=== PATIENT | male | born 1990 | race African-American/Black ===

== ENCOUNTER 2020-03-20 10:05 | Inpatient (IN) | payer SELFPAY ==
[~2020-03-20] VITALS: Ht 175.3 cm; Wt 68.8 kg
--- NOTE | 2020-03-20 10:38 | PHYS DOC ---
Past Medical History Past Medical History: Other Additional Past Medical Histor: 2 SEIZURES IN DECEMBER 2019 Past Surgical History: No Surgical History Smoking Status: Former Smoker Alcohol Use: Occasionally General Adult EDM: Chief Complaint: SEIZURE HPI: HPI: Patient is a 29 year old male who was brought here by his mom for evaluation of seizure activity. Patient says she was in his bed this morning and he was started having a seizure, convulsion, was confused after he woke up. His mom observed holding. Patient bit his tongue on the right side. Patient complained of headache at this time. Patient denies taking any medication at this time. Patient said he had 2 episodes seizure in December of this year. Patient went to ER at [facility], was evaluated there, recommend to be admitted for further evaluation however patient did not want to stay. Patient did not see a neurologist yet. Review of Systems: Review of Systems: Constitutional: Denies fever or chills. [] Eyes: Denies change in visual acuity. [] HENT: Denies nasal congestion or sore throat. [] Respiratory: Denies cough or shortness of breath. [] Cardiovascular: Denies chest pain or edema. [] GI: Denies abdominal pain, nausea, vomiting, bloody stools or diarrhea. [] : Denies dysuria. [] Musculoskeletal: Denies back pain or joint pain. [] Integument: Denies rash. [] Neurologic: Positive headache, positive for seizure activity. Endocrine: Denies polyuria or polydipsia. [] Lymphatic: Denies swollen glands. [] Psychiatric: Denies depression or anxiety. [] Heart Score: Risk Factors: Risk Factors: DM, Current or recent (<one month) smoker, HTN, HLP, family history of CAD, obesity. Risk Scores: Score 0 - 3: 2.5% MACE over next 6 weeks - Discharge Home Score 4 - 6: 20.3% MACE over next 6 weeks - Admit for Clinical Observation Score 7 - 10: 72.7% MACE over next 6 weeks - Early Invasive Strategies Allergies: Allergies: Allergies Coded Allergies Type Severity Reaction Last Updated Verified No Known Drug Allergies 03/20/20 No Physical Exam: PE: Constitutional: Well developed, well nourished, no acute distress, non-toxic appearance. [] HENT: Normocephalic, atraumatic, bilateral external ears normal, oropharynx moist, no oral exudates, nose normal. Anterior part of the right side of the tongue with skin abrasion Eyes: PERRLA, EOMI, conjunctiva normal, no discharge. [] Neck: Normal range of motion, no tenderness, supple, no stridor. [] Cardiovascular:Heart rate regular rhythm, no murmur [] Lungs & Thorax: Bilateral breath sounds clear to auscultation [] Abdomen: Bowel sounds normal, soft, no tenderness, no masses, no pulsatile masses. [] Skin: Warm, dry, no erythema, no rash. [] Back: No tenderness, no CVA tenderness. [] Extremities: No tenderness, no cyanosis, no clubbing, ROM intact, no edema. [] Neurologic: Alert and oriented X 3, normal motor function, normal sensory function, no focal deficits noted. [] Psychologic: Affect normal, judgement normal, mood normal. [] Current Patient Data: Labs: Laboratory Tests Test 03/20/20 10:45 03/20/20 11:23 White Blood Count 4.4 x10^3/uL Red Blood Count 4.53 x10^6/uL Hemoglobin 12.2 g/dL Hematocrit 38.7 % Mean Corpuscular Volume 86 fL Mean Corpuscular Hemoglobin 27 pg Mean Corpuscular Hemoglobin Concent 32 g/dL Red Cell Distribution Width 15.4 % Platelet Count 166 x10^3/uL Neutrophils (%) (Auto) 62 % Lymphocytes (%) (Auto) 26 % Monocytes (%) (Auto) 10 % Eosinophils (%) (Auto) 2 % Basophils (%) (Auto) 1 % Neutrophils # (Auto) 2.7 x10^3/uL Lymphocytes # (Auto) 1.1 x10^3/uL Monocytes # (Auto) 0.4 x10^3/uL Eosinophils # (Auto) 0.1 x10^3/uL Basophils # (Auto) 0.1 x10^3/uL Sodium Level 140 mmol/L Potassium Level 4.0 mmol/L Chloride Level 105 mmol/L Carbon Dioxide Level 29 mmol/L Anion Gap 6 Blood Urea Nitrogen 11 mg/dL Creatinine 1.1 mg/dL Estimated GFR (Cockcroft-Gault) 78.6 BUN/Creatinine Ratio 10 Glucose Level 93 mg/dL Calcium Level 8.7 mg/dL Magnesium Level 2.1 mg/dL Total Bilirubin 0.4 mg/dL Aspartate Amino Transf (AST/SGOT) 30 U/L Alanine Aminotransferase (ALT/SGPT) 31 U/L Alkaline Phosphatase 61 U/L Creatine Kinase 342 U/L Total Protein 7.6 g/dL Albumin 3.5 g/dL Albumin/Globulin Ratio 0.9 Ethyl Alcohol Level < 10 mg/dL Urine Collection Type Void Urine Color Yellow Urine Clarity Clear Urine pH 5.5 Urine Specific [place] 1.020 Urine Protein Negative mg/dL Urine Glucose (UA) Negative mg/dL Urine Ketones (Stick) Negative mg/dL Urine Blood Negative Urine Nitrite Negative Urine Bilirubin Negative Urine Urobilinogen Dipstick 0.2 mg/dL Urine Leukocyte Esterase Negative Urine RBC 1-2 /HPF Urine WBC 1-4 /HPF Urine Squamous Epithelial Cells Few /LPF Urine Bacteria Few /HPF Urine Mucus Marked /LPF Urine Opiates Screen Neg Urine Methadone Screen Neg Urine Barbiturates Neg Urine Phencyclidine Screen Neg Urine Amphetamine/Methamphetamine Neg Urine Benzodiazepines Screen Neg Urine Cocaine Screen Neg Urine Cannabinoids Screen Pos Urine Ethyl Alcohol Neg Current Medications Medications (Trade) Dose Ordered Sig/Chuy Route PRN Reason Start Time Stop Time Status Last Admin Dose Admin Sodium Chloride 1,000 ml @ 1,000 mls/hr 1X ONCE IV 03/20/20 10:45 03/20/20 11:44 DC 03/20/20 10:47 Levetiracetam 1000 mg/Dextrose 110 ml @ 440 mls/hr 1X ONCE IV 03/20/20 12:30 03/20/20 12:44 DC 03/20/20 12:38 Vital Signs: Vital Signs Date Time Temp Pulse Resp B/P (MAP) Pulse Ox O2 Delivery O2 Flow Rate FiO2 03/20/20 10:10 98.0 80 18 136/79 (98) 100 Room Air 98.0 EKG: EKG: [] Radiology/Procedures: Radiology/Procedures: [][facility] [address] [place] [address] IMAGING REPORT Signed PATIENT: SOSA GAMEZCCOUNT: [id number] : 1990 LOCATION: ER AGE: 29 SEX: M EXAM STATUS: PRE ER ORD. PHYSICIAN: DEBRA MONTANA DO REASON: seizure PROCEDURE: CT HEAD WO CONTRAST CT HEAD WO CONTRAST Clinical indications: Seizure. COMPARISON: None available. Technique: Noncontrast axial cross sectional scanning of the head was performed. PQRS compliance Statement One or more of the following individualized dose reduction techniques were utilized for this study: 1. Automated exposure control 2. Adjustment of the mA and/or kV according to patient size 3. Use of iterative reconstruction technique Findings: No acute intracranial hemorrhage or midline shift or mass-effect or hydrocephalus or extra-axial fluid collection is seen. No focal hypodense area or sulci effacement is seen to indicate an acute infarct or edema radiographically. No skull fracture or pneumocephalus is seen. No opacification of the mastoid sinuses or the middle ear cavities or the paranasal sinuses is seen. The maxillary sinuses are not completely seen in this study. Impression: No acute intracranial abnormality is seen. Electronically signed by: Issac Wagner MD (03/20/2020 11:21 AM) [id number] DICTATED and SIGNED BY: ISSAC WAGNER MD DATE: 03/20/201120 Course & Med Decision Making: Course & Med Decision Making Pertinent Labs and Imaging studies reviewed. (See chart for details) Patient is a 29-year-old male who was evaluated in ER due to seizure activity, while the patient was in ER, he was found to have another seizure activity, generalized, was very confused in postictal stage. Discussed with Dr. Sharif, recommended to admit patient for iv Keppra. [place] Disclaimer: Dragmariana Disclaimer: This electronic medical record was generated, in whole or in part, using a voice recognition dictation system. Departure Departure Impression: Primary Impression: Seizure Disposition: ADMITTED INPATIENT Condition: STABLE Justicifation of Admission Dx: Justifications for Admission: Justification of Admission Dx: Yes (seizure) DEBRA MONTANA DO Mar 20, 2020 10:37
[2020-03-20] MEDS ORDERED: IV NORMAL SALINE 1000ML BAG 1,000 ML IV ONE (10:45)
[2020-03-20 10:57] LABS: BASO # 0.1 x10^3/uL (0.0-0.2); BASO % 1 % (0-3); EOS # 0.1 x10^3/uL (0.0-0.7); EOS % 2 % (0-3); HEMATOCRIT 38.7 % (39.0-53.0); HEMOGLOBIN 12.2 g/dL (13.0-17.5); LYMPH # 1.1 x10^3/uL (1.0-4.8); LYMPH % 26 % (24-48); MEAN CORPUSCULAR HEMOGLOBIN 27 pg (25-35); MEAN CORPUSCULAR HGB CONC 32 g/dL (31-37); MEAN CORPUSCULAR VOLUME 86 fL (79-100); MONO # 0.4 x10^3/uL (0.0-1.1); MONO % 10 % (0-9); NEUT # 2.7 x10^3/uL (1.8-7.7); NEUT % 62 % (31-73); PLATELET COUNT 166 x10^3/uL (140-400); RED BLOOD COUNT 4.53 x10^6/uL (4.30-5.70); RED CELL DISTRIBUTION WIDTH 15.4 % (11.5-14.5); WHITE BLOOD COUNT 4.4 x10^3/uL (4.0-11.0)
[2020-03-20 11:08] LABS: CALCIUM 8.7 mg/dL (8.5-10.1); CREATININE 1.1 mg/dL (0.7-1.3); GFR 78.6
[2020-03-20 11:12] LABS: ALBUMIN 3.5 g/dL (3.4-5.0); ALBUMIN/GLOBULIN RATIO 0.9 (1.0-1.7); MAGNESIUM 2.1 mg/dL (1.8-2.4); TOTAL BILIRUBIN 0.4 mg/dL (0.2-1.0); TOTAL PROTEIN 7.6 g/dL (6.4-8.2)
--- NOTE | 2020-03-20 11:24 | RAD ---
CT HEAD WO CONTRAST Clinical indications: Seizure. COMPARISON: None available. Technique: Noncontrast axial cross sectional scanning of the head was performed. PQRS compliance Statement One or more of the following individualized dose reduction techniques were utilized for this study: 1. Automated exposure control 2. Adjustment of the mA and/or kV according to patient size 3. Use of iterative reconstruction technique Findings: No acute intracranial hemorrhage or midline shift or mass-effect or hydrocephalus or extra-axial fluid collection is seen. No focal hypodense area or sulci effacement is seen to indicate an acute infarct or edema radiographically. No skull fracture or pneumocephalus is seen. No opacification of the mastoid sinuses or the middle ear cavities or the paranasal sinuses is seen. The maxillary sinuses are not completely seen in this study. Impression: No acute intracranial abnormality is seen. Electronically signed by: Leroy Wagner MD (03/20/2020 11:21 AM) [id number]
[2020-03-20 11:48] LABS: BILIRUBIN,URINE NEGATIVE (NEG); CLARITY,URINE CLEAR; COLOR,URINE YELLOW; NITRITE,URINE NEGATIVE (NEG); PH,URINE 5.5 (<5.0-8.0); PROTEIN,URINE NEGATIVE (NEG-TRACE); UROBILINOGEN,URINE 0.2 mg/dL (0.2 mg/dL)
[2020-03-20 12:08] LABS: BARBITURATES NEG (NEG); BENZODIAZEPINES NEG (NEG); CANNABINOIDS POS (NEG); COCAINE NEG (NEG); METHADONE NEG (NEG); OPIATES NEG (NEG); PHENCYCLIDINE NEG (NEG)
[2020-03-20 12:09] LABS: AMPHETAMINE/METHAMPHETAMINE NEG (NEG); BACTERIA,URINE FEW /HPF (0-FEW); SQUAMOUS EPITHELIAL CELL,UR FEW /LPF
[2020-03-20] MEDS ORDERED: levETIRAcetam 1,000 MG in IV DEXTROSE 5% 100ML 100 ML IV ONE (12:30)
[2020-03-20] MEDS: IV NORMAL SALINE 1000ML BAG 1,000 ML IV SCH ×2 (13:31→23:23)
[2020-03-20] MEDS ORDERED: diphenhydrAMINE 50 MG/ML VIAL IVP PRN (14:00)
[2020-03-20] MEDS ORDERED: ONDANSETRON PF 4 MG/2 ML VIAL. IV PRN (14:00)
[2020-03-20] MEDS ORDERED: LORazepam 0.5 MG TABLET PO PRN (14:00)
[2020-03-20] MEDS ORDERED: guaiFENesin ORAL 200 MG/10 ML LIQUID. PO PRN (14:00)
[2020-03-20] MEDS ORDERED: ACETAMINOPHEN 325 MG TABLET. PO PRN (14:00)
[2020-03-20] MEDS ORDERED: ALBUTEROL SULFATE 2.5 MG/3 ML NEBU. NEB PRN (14:00)
[2020-03-20] MEDS ORDERED: KETOROLAC 30 MG/ML VIAL. IVP ONE (14:00)
[2020-03-20] MEDS ORDERED: DOCUSATE SODIUM 100 MG CAPSULE. PO PRN (14:00)
[2020-03-20] MEDS ORDERED: TRAM50TA PO (14:45)
[2020-03-20 15:00] VITALS: BP 97/61
--- NOTE | 2020-03-20 17:56 | PDOC1 ---
History and Physical Date of Admission Date of Admission 03/20/2020 Identification/Chief Complaint Chief Complaint I had a seizure Source Source: Chart review, Patient History of Present Illness History of Present Illness Patient is a 29-year-old male who was brought by his mother for evaluation of seizure-like activity. Patient had his first episode in December and was evaluated at a different facility. The patient was not prescribed antiepileptic drugs and apparently there was no evident etiology for his seizure disorder. Apparently the patient has had this episodes while being asleep in first time apparently the patient was going up stairs and mother heard a thud and he came tumbling down the stairs at that moment. The patient today had his first episode when she noticed a sound coming from the patient's room and he he bit his tongue in the process. Patient was brought for evaluation to the emergency department and unfortunately had a second episode while being in the emergency department r charlie why we were asked to admit the patient for further evaluation and treatment. According to the ER notes patient was evaluated at [facility] and was recommended to be admitted but he did not want to stay at that time. He has not seen a neurologist yet at the time of my evaluation the patient is in no acute distress. He is not complaining of any aura type of symptoms no headache no blurred vision no double vision. I have explained the treatment plan and reassurance was provided since the patient seems to be quite upset that his life "is never going to be the same". Past Medical History Past Medical History Seizure-like activity Past Surgical History Past Surgical History: No pertinent history Family History Family History: No Significant Social History Smoke: No ALCOHOL: none Drugs: None Current Problem List Problem List Problems Medical Problems: (1) Seizure Status: Acute Current Medications Current Medications Current Medications Medications (Trade) Dose Ordered Sig/Chuy Start Time Stop Time Status Last Admin Dose Admin Acetaminophen (Tylenol) 650 mg PRN Q4HRS PRN 03/20/20 14:00 Albuterol Sulfate (Ventolin Neb Soln) 2.5 mg PRN Q4HRS PRN 03/20/20 14:00 Diphenhydramine HCl (Benadryl) 25 mg PRN Q4HRS PRN 03/20/20 14:00 Docusate Sodium (Colace) 100 mg PRN BID PRN 03/20/20 14:00 Guaifenesin (Robitussin) 200 mg PRN Q4HRS PRN 03/20/20 14:00 Ketorolac Tromethamine (Toradol 30mg Vial) 30 mg 1X ONCE 03/20/20 14:00 03/20/20 14:01 DC 03/20/20 13:41 30 MG Levetiracetam (Keppra) 500 mg BID 03/20/20 21:00 Levetiracetam 1000 mg/Dextrose 110 ml @ 440 mls/hr 1X ONCE 03/20/20 12:30 03/20/20 12:44 DC 03/20/20 12:38 440 MLS/HR Lorazepam (Ativan) 0.5 mg PRN Q4HRS PRN 03/20/20 14:00 Ondansetron HCl (Zofran) 4 mg PRN Q4HRS PRN 03/20/20 14:00 Sodium Chloride 1,000 ml @ 100 mls/hr Q10H 03/20/20 13:23 03/21/20 13:22 03/20/20 13:31 100 MLS/HR Allergies Allergies Allergies Coded Allergies Type Severity Reaction Last Updated Verified No Known Drug Allergies 03/20/20 No ROS Review of System CONSTITUTIONAL: No fever or chills EYES: No recent changes SKIN: No rash or itching CARDIOVASCULAR: No chest pain, syncope, palpitations, or edema RESPIRATORY: No SOB or cough GASTROINTESTINAL: No nausea, vomiting or abdominal pain NEUROLOGICAL: No headaches or weakness ENDOCRINE: No cold or heat intolerance GENITOURINARY: No urgency or frequency of urination MUSCULOSKELETAL: No back pain or joint pain LYMPHATICS: No enlarged lymph nodes PSYCHIATRIC: No anxiety or depression Physical Exam Physical Exam GEN.: No apparent distress. Alert and oriented. HEENT: Head is normocephalic, atraumatic NECK: Supple. LUNGS: Clear to auscultation. HEART: RRR, S1, S2 present. Peripheral pulses intact ABDOMEN: Soft, nontender. Positive bowel sounds. EXTREMITIES: Without any cyanosis. NEUROLOGIC: Normal speech, normal tone PSYCHIATRIC: Normal affect, normal mood. SKIN: No ulcerations Vitals Vitals Vital Signs Date Time Temp Pulse Resp B/P (MAP) Pulse Ox O2 Delivery O2 Flow Rate FiO2 03/20/20 15:03 Room Air 03/20/20 15:00 98.3 78 18 97/61 (73) 97 98.3 Labs Labs Laboratory Tests Test 03/20/20 10:45 03/20/20 11:23 White Blood Count 4.4 x10^3/uL (4.0-11.0) Red Blood Count 4.53 x10^6/uL (4.30-5.70) Hemoglobin 12.2 g/dL (13.0-17.5) Hematocrit 38.7 % (39.0-53.0) Mean Corpuscular Volume 86 fL (79-100) Mean Corpuscular Hemoglobin 27 pg (25-35) Mean Corpuscular Hemoglobin Concent 32 g/dL (31-37) Red Cell Distribution Width 15.4 % (11.5-14.5) Platelet Count 166 x10^3/uL (140-400) Neutrophils (%) (Auto) 62 % (31-73) Lymphocytes (%) (Auto) 26 % (24-48) Monocytes (%) (Auto) 10 % (0-9) Eosinophils (%) (Auto) 2 % (0-3) Basophils (%) (Auto) 1 % (0-3) Neutrophils # (Auto) 2.7 x10^3/uL (1.8-7.7) Lymphocytes # (Auto) 1.1 x10^3/uL (1.0-4.8) Monocytes # (Auto) 0.4 x10^3/uL (0.0-1.1) Eosinophils # (Auto) 0.1 x10^3/uL (0.0-0.7) Basophils # (Auto) 0.1 x10^3/uL (0.0-0.2) Sodium Level 140 mmol/L (136-145) Potassium Level 4.0 mmol/L (3.5-5.1) Chloride Level 105 mmol/L (98-107) Carbon Dioxide Level 29 mmol/L (21-32) Anion Gap 6 (6-14) Blood Urea Nitrogen 11 mg/dL (8-26) Creatinine 1.1 mg/dL (0.7-1.3) Estimated GFR (Cockcroft-Gault) 78.6 BUN/Creatinine Ratio 10 (6-20) Glucose Level 93 mg/dL (70-99) Calcium Level 8.7 mg/dL (8.5-10.1) Magnesium Level 2.1 mg/dL (1.8-2.4) Total Bilirubin 0.4 mg/dL (0.2-1.0) Aspartate Amino Transf (AST/SGOT) 30 U/L (15-37) Alanine Aminotransferase (ALT/SGPT) 31 U/L (16-63) Alkaline Phosphatase 61 U/L (46-116) Creatine Kinase 342 U/L (39-308) Total Protein 7.6 g/dL (6.4-8.2) Albumin 3.5 g/dL (3.4-5.0) Albumin/Globulin Ratio 0.9 (1.0-1.7) Ethyl Alcohol Level < 10 mg/dL (0-10) Urine Collection Type Void Urine Color Yellow Urine Clarity Clear Urine pH 5.5 (<5.0-8.0) Urine Specific [place] 1.020 (1.000-1.030) Urine Protein Negative mg/dL (NEG-TRACE) Urine Glucose (UA) Negative mg/dL (NEG) Urine Ketones (Stick) Negative mg/dL (NEG) Urine Blood Negative (NEG) Urine Nitrite Negative (NEG) Urine Bilirubin Negative (NEG) Urine Urobilinogen Dipstick 0.2 mg/dL (0.2 mg/dL) Urine Leukocyte Esterase Negative (NEG) Urine RBC 1-2 /HPF (0-2) Urine WBC 1-4 /HPF (0-4) Urine Squamous Epithelial Cells Few /LPF Urine Bacteria Few /HPF (0-FEW) Urine Mucus Marked /LPF Urine Opiates Screen Neg (NEG) Urine Methadone Screen Neg (NEG) Urine Barbiturates Neg (NEG) Urine Phencyclidine Screen Neg (NEG) Urine Amphetamine/Methamphetamine Neg (NEG) Urine Benzodiazepines Screen Neg (NEG) Urine Cocaine Screen Neg (NEG) Urine Cannabinoids Screen Pos (NEG) Urine Ethyl Alcohol Neg (NEG) Laboratory Tests Test 03/20/20 10:45 03/20/20 11:23 White Blood Count 4.4 x10^3/uL (4.0-11.0) Red Blood Count 4.53 x10^6/uL (4.30-5.70) Hemoglobin 12.2 g/dL (13.0-17.5) Hematocrit 38.7 % (39.0-53.0) Mean Corpuscular Volume 86 fL (79-100) Mean Corpuscular Hemoglobin 27 pg (25-35) Mean Corpuscular Hemoglobin Concent 32 g/dL (31-37) Red Cell Distribution Width 15.4 % (11.5-14.5) Platelet Count 166 x10^3/uL (140-400) Neutrophils (%) (Auto) 62 % (31-73) Lymphocytes (%) (Auto) 26 % (24-48) Monocytes (%) (Auto) 10 % (0-9) Eosinophils (%) (Auto) 2 % (0-3) Basophils (%) (Auto) 1 % (0-3) Neutrophils # (Auto) 2.7 x10^3/uL (1.8-7.7) Lymphocytes # (Auto) 1.1 x10^3/uL (1.0-4.8) Monocytes # (Auto) 0.4 x10^3/uL (0.0-1.1) Eosinophils # (Auto) 0.1 x10^3/uL (0.0-0.7) Basophils # (Auto) 0.1 x10^3/uL (0.0-0.2) Sodium Level 140 mmol/L (136-145) Potassium Level 4.0 mmol/L (3.5-5.1) Chloride Level 105 mmol/L (98-107) Carbon Dioxide Level 29 mmol/L (21-32) Anion Gap 6 (6-14) Blood Urea Nitrogen 11 mg/dL (8-26) Creatinine 1.1 mg/dL (0.7-1.3) Estimated GFR (Cockcroft-Gault) 78.6 BUN/Creatinine Ratio 10 (6-20) Glucose Level 93 mg/dL (70-99) Calcium Level 8.7 mg/dL (8.5-10.1) Magnesium Level 2.1 mg/dL (1.8-2.4) Total Bilirubin 0.4 mg/dL (0.2-1.0) Aspartate Amino Transf (AST/SGOT) 30 U/L (15-37) Alanine Aminotransferase (ALT/SGPT) 31 U/L (16-63) Alkaline Phosphatase 61 U/L (46-116) Creatine Kinase 342 U/L (39-308) Total Protein 7.6 g/dL (6.4-8.2) Albumin 3.5 g/dL (3.4-5.0) Albumin/Globulin Ratio 0.9 (1.0-1.7) Ethyl Alcohol Level < 10 mg/dL (0-10) Urine Collection Type Void Urine Color Yellow Urine Clarity Clear Urine pH 5.5 (<5.0-8.0) Urine Specific [place] 1.020 (1.000-1.030) Urine Protein Negative mg/dL (NEG-TRACE) Urine Glucose (UA) Negative mg/dL (NEG) Urine Ketones (Stick) Negative mg/dL (NEG) Urine Blood Negative (NEG) Urine Nitrite Negative (NEG) Urine Bilirubin Negative (NEG) Urine Urobilinogen Dipstick 0.2 mg/dL (0.2 mg/dL) Urine Leukocyte Esterase Negative (NEG) Urine RBC 1-2 /HPF (0-2) Urine WBC 1-4 /HPF (0-4) Urine Squamous Epithelial Cells Few /LPF Urine Bacteria Few /HPF (0-FEW) Urine Mucus Marked /LPF Urine Opiates Screen Neg (NEG) Urine Methadone Screen Neg (NEG) Urine Barbiturates Neg (NEG) Urine Phencyclidine Screen Neg (NEG) Urine Amphetamine/Methamphetamine Neg (NEG) Urine Benzodiazepines Screen Neg (NEG) Urine Cocaine Screen Neg (NEG) Urine Cannabinoids Screen Pos (NEG) Urine Ethyl Alcohol Neg (NEG) VTE Prophylaxis Ordered VTE Prophylaxis Devices: Yes VTE Pharmacological Prophylaxi: No Assessment/Plan Assessment/Plan Seizure-like activity Normocytic Elevation of creatinine kinase as a result of his seizure activity Tongue trauma as a result of his seizure activity Plan Consult neurology Nathan has been started Seizure precaution SCDs for DVT prophylax Reassess in the a.m. Further recommendations based on clinical course Justifications for Admission Other Justification MIGUEL DUEÑAS MD Mar 20, 2020 17:56
[2020-03-20 19:00] VITALS: BP 118/68
[2020-03-20] MEDS: levETIRAcetam 500 MG TABLET PO SCH (21:51)
[2020-03-20 23:00] VITALS: BP 115/67
[2020-03-21 03:00] VITALS: BP 131/84
[2020-03-21 08:13] VITALS: BP 128/84
[2020-03-21] MEDS: levETIRAcetam 500 MG TABLET PO SCH (08:37)
[2020-03-21] MEDS: IV NORMAL SALINE 1000ML BAG 1,000 ML IV SCH ×2 (08:38→08:42)
[2020-03-21 11:00] VITALS: BP 113/69
--- NOTE | 2020-03-21 12:38 | PDOC ---
[employer] PROGRESS NOTE Date of Service DOS: DATE: 03/21/20 TIME: 12:37 Chief Complaint Chief Complaint Seizure-like activity Normocytic Elevation of creatinine kinase as a result of his seizure activity Tongue trauma as a result of his seizure activity Plan Consult neurology Nathan has been started Seizure precaution SCDs for DVT prophylax Reassess in the a.m. Further recommendations based on clinical course History of Present Illness History of Present Illness 29-year-old male who was brought by his mother for evaluation of seizure-like activity. Patient had his first episode in December and was evaluated at a different facility. The patient was not prescribed antiepileptic drugs and apparently there was no evident etiology for his seizure disorder. Apparently the patient has had this episodes while being asleep in first time apparently the patient was going up stairs and mother heard a thud and he came tumbling down the stairs at that moment. The patient today had his first episode when she noticed a sound coming from the patient's room and he he bit his tongue in the process. Patient was brought for evaluation to the emergency department and unfortunately had a second episode while being in the emergency department reason why we were asked to admit the patient for further evaluation and treatment. According to the ER notes patient was evaluated at [facility] and was recommended to be admitted but he did not want to stay at that time. He has not seen a neurologist yet at the time of my evaluation the patient is in no acute distress. He is not complaining of any aura type of symptoms no headache no blurred vision no double vision. I have explained the treatment plan and reassurance was provided since the patient seems to be quite upset that his life "is never going to be the same". 03/21/2020 No acute events overnight. No seizure activity since admission. No complaints voiced at this time. Patient's chart, labs, images were reviewed and discussed with RN Vitals/I&O Vitals/I&O: Vital Signs Date Time Temp Pulse Resp B/P (MAP) Pulse Ox O2 Delivery O2 Flow Rate FiO2 03/21/20 11:00 97.6 66 16 113/69 (84) 99 Room Air 97.6 I & O 03/20/20 03/20/20 03/21/20 15:00 23:00 07:00 Intake Total 1310 ml 100 ml 120 ml Balance 1310 ml 100 ml 120 ml Physical Exam Physical Exam: GEN: No apparent distress. Alert and oriented HEENT: Normal cephalic, atraumatic, external auditory canals are patent NECK: Supple, no JVD, no thyromegaly was noted LUNGS: Bilateral crackles HEART: RRR, S1, S2 present. Peripheral pulses intact, no obvious murmurs noted ABDOMEN: Soft, nontender. Positive bowel sounds, no organomegaly, normal bowel sounds EXTREMITIES: Without clubbing, cyanosis, or edema. Pedal pulses intact. Negative Homans sign Assessment and Plan Assessmemt and Plan Problems Medical Problems: (1) Seizure Status: Acute Comment Review of Relevant I have reviewed the following items hank (where applicable) has been applied. Medications: Current Medications Medications (Trade) Dose Ordered Sig/Chuy Route PRN Reason Start Time Stop Time Status Last Admin Dose Admin Sodium Chloride 1,000 ml @ 100 mls/hr Q10H IV 03/20/20 13:23 03/21/20 13:22 03/20/20 23:23 Ketorolac Tromethamine (Toradol 30mg Vial) 30 mg 1X ONCE IVP 03/20/20 14:00 03/20/20 14:01 DC 03/20/20 13:41 Levetiracetam (Keppra) 500 mg BID PO 03/20/20 21:00 03/21/20 08:37 Justifications for Admission Other Justification ADAIR MOYA MD Mar 21, 2020 12:38
[2020-03-21] MEDS ORDERED: LEVE500T56 PO (13:06)
--- NOTE | 2020-03-21 13:07 | DISCH ---
DISCHARGE INSTRUCTIONS Condition on Discharge Condition on Discharge: Stable Activity After Discharge Activity Instructions for Disc: Activity as tolerated Driving Instructions after Dis: Other, see below (No driving until cleared by Neurology) Follow-Up Follow up with: PCP within 1 week of discharge Follow Up With: Neurology ADAIR MOYA MD Mar 21, 2020 13:07
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
[2020-03-21 15:00] VITALS: BP 123/80
--- NOTE | 2020-03-21 16:06 | NUR ---
Discharge Note: ORTIZ GAMEZ [place] Discharge instructions and discharge home medications reviewed with Patient and a copy given. All questions have been answered and understanding verbalized. The following instructions and handouts were given: Patient given education regarding new medication and follow ups. Discontinued lines and drains: Iv removed per protocol. Patient discharged home, did not want to wait for cab and decided to leave by walking that he did not live far.
--- NOTE | 2020-03-24 05:24 | EKG ---
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
--- NOTE | 2020-03-24 08:46 | PDOC3 ---
[facility]-Discharge Summary Date of Admission: Date of Admission: Mar 20, 2020 Date of Discharge: Date of Discharge: Mar 21, 2020 Admission Diagnosis: Admitting Diagnosis: Seizure-like activity Normocytic Elevation of creatinine kinase as a result of his seizure activity Tongue trauma as a result of his seizure activity Discharge Diagnosis: Discharge Diagnosis: Epilepsy Normocytic Elevation of creatinine kinase as a result of his seizure activity Tongue trauma as a result of his seizure activity Consults: Consults: Neuro Hospital Course: Hospital Course: 29-year-old male who was brought by his mother for evaluation of seizure-like activity. Patient had his first episode in December and was evaluated at a different facility. The patient was not prescribed antiepileptic drugs and apparently there was no evident etiology for his seizure disorder. Apparently the patient has had this episodes while being asleep in first time apparently the patient was going up stairs and mother heard a thud and he came tumbling down the stairs at that moment. The patient today had his first episode when she noticed a sound coming from the patient's room and he he bit his tongue in the process. Patient was brought for evaluation to the emergency department and unfortunately had a second episode while being in the emergency department reason why we were asked to admit the patient for further evaluation and treatment. According to the ER notes patient was evaluated at [facility] and was recommended to be admitted but he did not want to stay at that time. He has not seen a neurologist yet at the time of my evaluation the patient is in no acute distress. He is not complaining of any aura type of symptoms no headache no blurred vision no double vision. I have explained the treatment plan and reassurance was provided since the patient seems to be quite upset that his life "is never going to be the same". Patient admitted for seizure precautions, observation and evaluation [facility] Neurology. Dr Stewart will complete workup was outpatinet. Seizures are con trolled with Keppra at this time. Patient was instructed not to drive until cleared by complete evaluation. The rest of his hospital course was uneventful. Disposition: Disposition/Orders: D/C to Home Activity: Activity: Resume previous activity Diet: Diet: Regular Medications: Home Meds Active Scripts Levetiracetam (KEPPRA) 500 Mg Tablet, 500 MG PO BID for seizure prevention for 60 Days, #120 TAB Prov:ADAIR MOYA MD 03/21/20 Discontinued Reported Medications Tramadol Hcl (TRAMADOL HCL) 50 Mg Tablet, 50 MG PO Q6HRS PRN for PAIN, TAB 03/20/20 Scheduled Levetiracetam (Keppra), 500 MG PO BID Discontinued Medications Tramadol Hcl (Tramadol Hcl), 50 MG PO Q6HRS PRN for PAIN, (Reported) Total Time: Total Time: Total time spent was 20 minutes in preparing scripts, discharge planning with SW and RN, and preparing this discharge summary. Justicifation of Admission Dx: Justifications for Admission: Justification of Admission Dx: Yes (seizure) ADAIR MOYA MD Mar 24, 2020 08:46
== END 2020-03-21 15:45 | disposition home or self-care (01) | DRG 101 ==
LOC: ER 10:05 → 5 NORTH 13:18
PROVIDERS: ADMIT Internal Medicine; ATTEND Internal Medicine
DX: G40.909 Epilepsy, unspecified, not intractable, without status epilepticus (principal); Z87.891 Personal history of nicotine dependence; Z86.19 Personal history of other infectious and parasitic diseases
CPT/HCPCS: 36415; 70450; 80053; 80307; 81001; 82550; 83735; 85025; 93005; 96361; 96365; 96375; 99285; G0480; J1885; J1953; J7030; J7060; G0378

== ENCOUNTER → 2020-03-27 | Outpatient (CLI) | payer SELFPAY ==
[2020-03-21 15:00] VITALS: BP 123/80
[~2020-03-27] MED LIST: LEVE500T56 PO; TRAM50TA PO
--- NOTE | 2020-04-01 09:13 | EEG ---
DATE OF SERVICE: 03/27/2020 PROCEDURE: Electroencephalogram. OBJECTIVE: The patient is a 29-year-old male with seizures. DESCRIPTION: This is a digital study. Electrodes are placed according to the international 10-20 system. Bipolar and referential montages are available. Activation procedures typically include hyperventilation and intermittent photic stimulation. INTERPRETATION: The waking background consists of 9-10 Hz, 50-100 microvolt activity, symmetrically distributed over parietooccipital regions and reactive to eye opening. Hyperventilation and intermittent photic stimulation are noncontributory. Stage 1 sleep is achieved with normal electroencephalogram patterns. Intermittent generalized slowing is observed, which appears to be consistent with drowsiness. IMPRESSION: This electroencephalogram with the patient awake and asleep is borderline because of intermittent generalized slowing, most likely just normal drowsiness. There is no clearcut epileptic activity. Thank you for letting us help with the patient's care. AUSTYN GOMES MD DR: LAWANDA/rosa JOB#: [id number] / [id number]
== END | disposition home or self-care (01) ==
LOC: RT 08:51
PROVIDERS: ATTEND Psychiatry & Neurology Neurology with Special Qualifications in Child Neurology
DX: R56.9 Unspecified convulsions (principal)
CPT/HCPCS: 95816

== ENCOUNTER → 2020-04-08 | Outpatient (CLI) | payer SELFPAY ==
[2020-03-21 15:00] VITALS: BP 123/80
[~2020-04-08] MED LIST changes: +GADOTERATE 7.5 MMOL/15ML VIAL. IVP ONE
--- NOTE | 2020-04-08 12:39 | RAD ---
BRAIN WO/W CONTRAST Date: 04/08/2020 10:30 AM Indication: RECENT SEIZURES WHILE SLEEPING Comparison: CT 03/20/2020. Technique: Multiplanar multisequence MRI of the brain was performed with and without intravenous contrast using the seizure protocol. 13 cc Dotarem contrast was administered intravenously during the exam. Findings: No acute infarct. No acute hemorrhage. Focus of gradient susceptibility artifact in the right parieto-occipital region (series 9 image 15). The ventricles are normal in size and configuration without hydrocephalus. Hippocampi are normal in signal and morphology. No ingram matter heterotopia or cortical dysplasia. No abnormal enhancement. The scalp and calvarium are normal. The pituitary and sella are normal. No Chiari malformation. The visualized upper cervical spine is normal. The visualized orbits and globes are normal. The visualized paranasal sinuses are clear. The mastoid air cells are clear. Normal flow voids within the vertebral, basilar, and internal carotid arteries indicating patency. IMPRESSION: 1. No acute infarct or acute hemorrhage. No mass or abnormal enhancement. 2. Right parieto-occipital focus of gradient susceptibility artifact, which could represent chronic microhemorrhage or cavernoma. Correlate with EEG findings. Electronically signed by: Bandar Leung MD (04/08/2020 12:36 PM) [id number]
== END | disposition home or self-care (01) ==
LOC: MRI 10:14
PROVIDERS: ATTEND Psychiatry & Neurology Neurology with Special Qualifications in Child Neurology
DX: R56.9 Unspecified convulsions (principal)
CPT/HCPCS: 70553; A9575

== ENCOUNTER 2021-05-31 15:01 | Emergency (ER) | payer SELFPAY ==
[~2021-05-31] VITALS: Ht 175.3 cm; Wt 71.3 kg
[~2021-05-31 15:01] MED LIST changes: -GADOTERATE 7.5 MMOL/15ML VIAL. IVP ONE
[2021-05-31 15:17] LABS: BASO # 0.1 x10^3/uL (0.0-0.2); BASO % 1 % (0-3); EOS % 0 % (0-3); HEMATOCRIT 41.8 % (39.0-53.0); LYMPH # 1.9 x10^3/uL (1.0-4.8); LYMPH % 22 % (24-48); MEAN CORPUSCULAR HEMOGLOBIN 26 pg (25-35); MEAN CORPUSCULAR HGB CONC 31 g/dL (31-37); MEAN CORPUSCULAR VOLUME 85 fL (79-100); MONO # 0.7 x10^3/uL (0.0-1.1); MONO % 8 % (0-9); NEUT # 5.7 x10^3/uL (1.8-7.7); NEUT % 68 % (31-73); PLATELET COUNT 217 x10^3/uL (140-400); RED BLOOD COUNT 4.93 x10^6/uL (4.30-5.70); RED CELL DISTRIBUTION WIDTH 18.6 % (11.5-14.5); WHITE BLOOD COUNT 8.4 x10^3/uL (4.0-11.0)
--- NOTE | 2021-05-31 15:23 | PHYS DOC ---
Past Medical History Past Medical History: Other Additional Past Medical Histor: 2 SEIZURES IN DECEMBER 2019 Past Surgical History: No Surgical History Smoking Status: Never Smoker Alcohol Use: Occasionally General Adult EDM: Chief Complaint: SEIZURE HPI: HPI: Patient is a 30 year old male with history of seizures who presents with seizure activity today. States that he was at home and had a headache this morning, he believes he had a seizure at home. He went to the pharmacy to see if he could get a refill of his Keppra, and had another seizure at the pharmacy. Witnessed by bystanders to have tonic clonic activity and struck his head on a tile floor. Bit his tongue b/l Pharmacy records indicate his last fill was June 2020, and was prescribed by neurologist, Dr. Gomes. States that these are his first episodes of seizures for the past 6 months. States that he has not been sleeping as well recently, sometimes only 6 hours at night. Denies drug use. Reports alcohol use, approximately 4 beers per day. Last drink was 2 days ago. States that he has never had a history of alcohol withdrawal seizures, and that he has gone several days without drinking without seizures in the recent past. States he otherwise has felt well aside his headache this morning. No neck pain or fever/chills. Review of Systems: Review of Systems: Constitutional: Denies fever or chills. [] Eyes: Denies change in visual acuity. [] HENT: Denies nasal congestion or sore throat. [] Respiratory: Denies cough or shortness of breath. [] Cardiovascular: Denies chest pain or edema. [] GI: Denies abdominal pain, nausea, vomiting, bloody stools or diarrhea. [] : Denies dysuria. [] Musculoskeletal: Denies back pain or joint pain. [] Integument: Denies rash. [] Neurologic: Reports seizure and headache. focal weakness or sensory changes. [] Endocrine: Denies polyuria or polydipsia. [] Lymphatic: Denies swollen glands. [] Psychiatric: Denies depression or anxiety. [] Heart Score: C/O Chest Pain: No Current Medications: Current Medications Medications (Trade) Dose Ordered Sig/Chuy Start Time Stop Time Status Last Admin Dose Admin Levetiracetam 1500 mg/Dextrose 115 ml @ 440 mls/hr 1X ONCE 05/31/21 15:15 05/31/21 15:30 UNV Allergies: Allergies: Allergies Coded Allergies Type Severity Reaction Last Updated Verified No Known Drug Allergies 03/20/20 No Physical Exam: PE: Constitutional: Well developed, well nourished, no acute distress, non-toxic ap pearance. [] HENT: b/l tongue biting, no midface bruising, instability or tenderness. no septal hematoma. Eyes: conjunctiva normal, no discharge. [] Neck: Normal range of motion, no tenderness, supple, no stridor. [] Cardiovascular:Heart rate regular rhythm, no murmur [] Lungs & Thorax: No chest wall tenderness to palpation. Bilateral breath sounds clear to auscultation [] Abdomen: Bowel sounds normal, soft, no tenderness, no masses, no pulsatile masses. [] Skin: Warm, dry, no erythema, no rash. [] Back: No tenderness, no CVA tenderness. [] Extremities: No tenderness, no cyanosis, no clubbing, ROM intact, no edema. [] Neurologic: Alert, oriented to person, place, time. Face is symmetric. Answering questions is slightly delayed at times. Speech is normal. Cranial nerves III-XII intact. 5/5 strength in bilateral upper and lower extremities. Psychologic: Affect normal, judgement normal, mood normal. [] EKG: EKG: [] Radiology/Procedures: Radiology/Procedures: [] Impression: [facility] [address] [place], [place] [id number] IMAGING REPORT Signed PATIENT: SOSA GAMEZCCOUNT: [id number] : 1990 LOCATION: ER AGE: 30 SEX: M EXAM STATUS: PRE ER ORD. PHYSICIAN: JAS AGUILAR MD REASON: SEIZURE, FALL, HEADSTRIKE, HEADACHE PROCEDURE: CT HEAD WO CONTRAST EXAM: CT HEAD WITHOUT CONTRAST. HISTORY: Seizure, fall, headache. TECHNIQUE: Computed tomography of the head was performed without intravenous contrast. One or more of the following individualized dose reduction techniques were utilized for this examination: 1. Automated exposure control. 2. Adjustment of the mA and/or kV according to patient size. 3. Use of iterative reconstruction technique. COMPARISON: None. FINDINGS: There is no intracranial hemorrhage. Rainey-white differentiation is preserved. The ventricles are normal in size and position. The visualized paranasal sinuses appear clear. The orbits are unremarkable. The temporal bones are unremarkable. The calvarium reveals no suspicious lesions. IMPRESSION: 1. No acute intracranial findings. Electronically signed by: Josesito Hidalgo MD (05/31/2021 3:41 PM) [id number] DICTATED and SIGNED BY: JAS HIDALGO MD DATE: 05/31/21 [id number] Course & Med Decision Making: Course & Med Decision Making Pertinent Labs and Imaging studies reviewed. (See chart for details) Patient a 30-year-old male with a established history of seizures who presented with 2 seizures earlier today in the setting of Keppra noncompliance. Struck his head hard on a tile floor and is complaining of a severe headache. CT head ordered. POC glucose normal in the field. Will check BMP for any signs of hyponatremia IV Keppra load 1500 mg ordered. We will continue to monitor mental status in the ED. 1523 CT head wnl. labs consistent w/ recent seizure with high gap acidosis, likely transient lactic acidemia. glucose and sodium ok. 1756 Patient is feeling better and has not had any recurrent seizures in the ED. She remains at his neurologic baseline without recurrent seizures should be safe for discharge with neurology follow-up with Dr. Gomes. We will give Rx for 30-day supply of Keppra 500 mg twice daily. 1602 Dragon Disclaimer: Dragon Disclaimer: This electronic medical record was generated, in whole or in part, using a voice recognition dictation system. Departure Departure Impression: Primary Impression: Seizure Disposition: 01 HOME / SELF CARE / HOMELESS Condition: STABLE Referrals: NO PCP (PCP) AUSTYN GOMES MD Please call Dr. Gomes's office to schedule a follow-up appointment. Call today or tomorrow morning to get this appointment scheduled. Additional Instructions: Your head CT did not show any signs of serious injury from your seizures or head strike earlier today. I like you to resume taking your Keppra medication. Please take 500 mg twice a day. Take your first dose tonight before bed. Please call Dr. Gomes's office to schedule follow-up appointment. Try to get plenty of sleep and limit alcohol use. Avoid any drug use. Scripts Levetiracetam (KEPPRA) 500 Mg Tablet 1 TAB PO BID for 30 Days, #60 TAB 0 Refills Prov: JAS AGUILAR MD 05/31/21 JAS AGUILAR MD May 31, 2021 15:23
[2021-05-31 15:30] LABS: CALCIUM 9.6 mg/dL (8.5-10.1); CREATININE 1.3 mg/dL (0.7-1.3); GFR 77.9; POTASSIUM 4.1 mmol/L (3.5-5.1)
[2021-05-31] MEDS ORDERED: levETIRAcetam 1,500 MG in IV DEXTROSE 5% 100ML 100 ML IV ONE (15:30)
--- NOTE | 2021-05-31 15:44 | RAD ---
EXAM: CT HEAD WITHOUT CONTRAST. HISTORY: Seizure, fall, headache. TECHNIQUE: Computed tomography of the head was performed without intravenous contrast. One or more of the following individualized dose reduction techniques were utilized for this examination: 1. Automated exposure control. 2. Adjustment of the mA and/or kV according to patient size. 3. Use of iterative reconstruction technique. COMPARISON: None. FINDINGS: There is no intracranial hemorrhage. Rainey-white differentiation is preserved. The ventricle s are normal in size and position. The visualized paranasal sinuses appear clear. The orbits are unremarkable. The temporal bones are un remarkable. The calvarium reveals no suspicious lesions. IMPRESSION: 1. No acute intracranial findings. Electronically signed by: Josesito Hidalgo MD (05/31/2021 3:41 PM) [id number]
[2021-05-31] MEDS ORDERED: LEVE500T56 PO (16:03)
[2021-05-31] MEDS ORDERED: ACETAMINOPHEN 500 MG TABLET PO ONE (16:15)
[2021-05-31] MEDS ORDERED: IBUPROFEN 400 MG TABLET. PO ONE (16:15)
[2021-05-31 17:05] VITALS: BP 105/64
== END 2021-05-31 17:25 | disposition home or self-care (01) ==
LOC: ER 15:01
DX: R56.9 Unspecified convulsions (principal)
CPT/HCPCS: 36415; 70450; 80048; 85025; 96374; 99285; J1953; J7060